=== PATIENT | male | born 1985 | race Hispanic/Latino ===

== ENCOUNTER 2018-05-28 13:01 | Emergency (ER) | payer OTHER ==
[2018-05-28] MEDS ORDERED: Sodium Chloride 0.9% 1,000 ML IV STA (13:50)
--- NOTE | 2018-05-28 13:51 | ED PDOC ---
Arrival/HPI - General Time Seen by Provider: 05/28/18 13:44 Historian: Patient - History of Present Illness Narrative History of Present Illness (Text): 05/28/18 13:51 A 32 year old male, with no significant past medical history, presents to the emergency department complaining of nausea, vomiting, and diarrhea for the past 3 days. Patient reports he recently moved to [place] from [place] approximately 1 month ago. Denies any recent sick contacts. He is also complaining of "electric shocks" to left upper extremity and right lower extremity. Patient denies any abdominal pain, or any other complaints at this time. Also, patient admits to being a smoker/marijuana user, and drinks beer daily. No PMD Associated Symptoms (Text): 05/28/18 14:44 Three-day history of nausea vomiting and diarrhea. No abdominal pain. No fever. No exposure. Patient states that he was feeling better yesterday and tried to eat this morning and again developed vomiting and diarrhea. He was unable to go to work. He does not appear ill. No genitourinary symptoms. Past Medical History - Provider Review Nursing Documentation Reviewed: Yes Family/Social History - Physician Review Nursing Documentation Reviewed: Yes Family/Social History: No Known Family HX Smoking Status: Heavy Smoker > 10 Cigarettes Daily Hx Alcohol Use: Yes Frequency of alcohol use: Daily Hx Substance Use: Yes (Marijuana) Allergies/Home Meds Allergies/Adverse Reactions: Allergies cat dander Allergy (Verified 05/28/18 13:49) SWELLING Review of Systems - Physician Review All systems were reviewed & negative as marked: Yes - Review of Systems Constitutional: absent: Fatigue, Fevers Respiratory: absent: SOB, Cough Cardiovascular: absent: Chest Pain, Palpitations, Syncope Gastrointestinal: Diarrhea, Nausea, Vomiting. absent: Abdominal Pain, Constipation Genitourinary Male: absent: Dysuria, Frequency, Hematuria Musculoskeletal: Other ("electric shocks" to left upper extremity and right lower extremity.) Neurological: absent: Headache, Dizziness, Focal Weakness Physical Exam Temperature: Afebrile Blood Pressure: Hypertensive Pulse: Regular Respiratory Rate: Normal Appearance: Positive for: Well-Appearing, Non-Toxic, Comfortable Pain Distress: None Mental Status: Positive for: Alert and Oriented X 3 - Systems Exam Head: Present: Atraumatic, Normocephalic Pupils: Present: PERRL Extroacular Muscles: Present: EOMI Conjunctiva: Present: Normal Mouth: Present: Moist Mucous Membranes Pharnyx: No: ERYTHEMA, EXUDATE, TONSILS ENLARGED Neck: Present: Normal Range of Motion Respiratory/Chest: Present: Clear to Auscultation, Good Air Exchange. No: Respiratory Distress, Accessory Muscle Use Cardiovascular: Present: Regular Rate and Rhythm, Normal S1, S2. No: Murmurs Abdomen: No: Tenderness, Distention, Peritoneal Signs, Rebound, Guarding Back: Present: Normal Inspection Upper Extremity: Present: Normal Inspection. No: Cyanosis, Edema Lower Extremity: Present: Normal Inspection. No: Edema Neurological: Present: GCS=15, CN II-XII Intact, Speech Normal, Motor Func Grossly Intact Skin: Present: Warm, Dry, Normal Color. No: Rashes Psychiatric: Present: Alert, Oriented x 3, Normal Insight, Normal Concentration Medical Decision Making ED Course and Treatment: 05/28/18 13:54 Impression: 32 year old male with nausea, vomiting, and diarrhea. No acute findings on physical examination. Plan: -- Labs -- Protonix -- Zofran -- IV Fluids -- Reassess and disposition Progress Notes: 05/28/18 16:03 Symptoms are markedly improved. Patient will be discharged home accompanied by his mother. Follow-up with PMD. Note for work. Follow up in ER as needed. - Scribe Statement The provider has reviewed the documentation as recorded by the Altagracia Barreto Provider Scribe Provider Scribe Attestation: All medical record entries made by the Scribgagandeep were at my direction and personally dictated by me. I have reviewed the chart and agree that the record accurately reflects my personal performance of the history, physical exam, medical decision making, and the department course for this patient. I have also personally directed, reviewed, and agree with the discharge instructions and disposition. Disposition/Present on Arrival - Present on Arrival Any Indicators Present on Arrival: No History of DVT/PE: No History of Uncontrolled Diabetes: No Urinary Catheter: No History of Decub. Ulcer: No - Disposition Have Diagnosis and Disposition been Completed?: Yes Diagnosis: Gastroenteritis, Nausea vomiting and diarrhea Disposition: HOME/ ROUTINE Disposition Time: 16:04 Patient Plan: Discharge Condition: IMPROVED Discharge Instructions (ExitCare): Viral Gastroenteritis, Nausea and Vomiting, Adult (DC), Diarrhea in Adolescents and Adults Additional Instructions: Clear liquids for 24 hours. Follow-up with PMD. Follow up in ER as needed. Hypertension check with PMD. Prescriptions: Ondansetron [Zofran Odt] 4 mg SL Q6 #20 odt Forms: WORK NOTE
[2018-05-28 13:59] VITALS: RESP 18; BMI 24.1
[2018-05-28 15:46] LABS: ALB/GLOB RATIO 1.5 (1.1-1.8); ALBUMIN 4.7 g/dL (3.0-4.8); ALT/SGPT 54 U/L (7-56); AST/SGOT 50 U/L (17-59); BLOOD UREA NITROGEN 14 mg/dL (7-21); CALCIUM 9.6 mg/dL (8.4-10.5); GFR NON-AFRICAN AMERICAN > 60; LIPASE 99 U/L (23-300)
[2018-05-28 15:52] LABS: BASO # 0.02 K/mm3 (0.0-2.0); BASO % 0.3 % (0.0-3.0); EOS # 0.1 (0.0-0.7); GRAN # 5.43 (1.4-6.5); GRAN % 73.8 % (50.0-68.0); HEMOGLOBIN 14.1 g/dL (14.0-18.0); LYMPH # 0.9 (1.2-3.4); LYMPH % 11.7 % (22.0-35.0); MEAN CELL VOLUME 95.2 fl (80.0-105.0); MEAN CORPUSCULAR HEMOGLOBIN 32.6 pg (25.0-35.0); MEAN CORPUSCULAR HGB CONC 34.2 g/dl (31.0-37.0); MEAN PLATELET VOLUME 9.6 fl (7.0-11.0); MONO % 13.2 % (1.0-6.0); RBC 4.33 10^6/uL (3.5-6.1); RED CELL DISTRIBUTION WIDTH 12.9 % (11.5-14.5); WHITE BLOOD COUNT 7.4 10^3/ul (4.5-11.0)
[2018-05-28 16:56] VITALS: BP 135/78; PULSE 76; O2SAT 99
== END 2018-05-28 16:54 | disposition home or self-care (01) ==
LOC: ED 13:01
DX: K52.9 Noninfective gastroenteritis and colitis, unspecified (principal)
CPT/HCPCS: 80053; 83690; 83735; 85025; 85730; 96361; 96374; 96375; 99282; C9113; J2405; J7030